=== PATIENT | female | born 1940 | race Caucasian/White ===

== ENCOUNTER 2021-04-26 17:32 | Emergency (ER) | payer OTHER, SELFPAY ==
[2021-04-26 17:39] VITALS: BP 152/70; PULSE 72; RESP 96; TEMP 36.7; BMI 29.0
--- NOTE | 2021-04-26 17:52 | DI.US.S_ITS ---
PROCEDURE: US PERIPH VENOUS LOW EXTREM RT INDICATIONS: EDEMA TECHNIQUE: Real-time imaging, as well as color and pulse Doppler interrogation, were performed of the lower extremity deep veins from the inguinal ligament to the popliteal fossa. COMPARISON: None. FINDINGS: The common femoral, femoral and popliteal veins are normally compressible, and free of intraluminal thrombus. Color and pulse Doppler demonstrate normal phasic intraluminal flow. There is normal augmentation response to distal compression maneuver. Ruiz's cyst. IMPRESSION: No evidence of DVT. Ruiz's cyst. Dictated by: Maria Elena Felipe M.D. on 04/26/2021 at 19:29 Approved by: Maria Elena Felipe M.D. on 04/26/2021 at 19:30
--- NOTE | 2021-04-26 19:38 | ED.EXTPRO ---
HPI - Extremity Problem General Chief complaint: Extremity Problem,Nontraumatic Stated complaint: poss blood clots, sent by doc Time Seen by Provider: 04/26/21 18:18 Source: patient Mode of arrival: Ambulatory Limitations: no limitations History of Present Illness HPI Narrative: Patient is an 80-year-old female who is here under the recommendation of her doctor for evaluation of right lower extremity swelling and a positive D-dimer that was ordered as an outpatient. Patient states that earlier today she was noticing that she is having swelling in her right lower extremity. She went to go see her doctor who ordered an outpatient D-dimer and she was called telling her that it was elevated and that she needed to come to the emergency department for evaluation no chest pain. No shortness of breath. Has never had a blood clot in the past. Did state that yesterday she was going up and down stairs more the which she normally does. She denies any joint pain. Related Data Allergies Allergy/AdvReac Type Severity Reaction Status Date / Time Penicillins Allergy Verified 04/26/21 17:43 Review of Systems Constitutional Constitutional: Reports system reviewed and no additional complaints, except as documented Cardiovascular Comments: No chest pain Respiratory Comments: No shortness of breath Musculoskeletal Comments: Right lower extremity swelling Integumentary/Breasts Skin/Breast: Reports system reviewed and no additional complaints, except as documented Hematologic/Lymphatic On Anticoagulants: No Patient History Social History Smoking Status: Never smoker Smoking Status: Never smoker alcohol intake frequency: holidays/special occasions only Substance Use Type: does not use Exam Initial Vital Signs Initial Vital Signs: Vital Signs Temperature 98.1 F 04/26/21 17:39 Pulse Rate 72 04/26/21 17:39 Respiratory Rate 96 H 04/26/21 17:39 Blood Pressure 152/70 H 04/26/21 17:39 Const General: cooperative and comfortable HENMT Head: normal to inspection and normocephalic Resp Effort & Inspection: normal respiratory effort Auscultation: clear to auscultation bilaterally Cardio Rate: regular rate Rhythm: regular rhythm Skin General: no rashes or lesions noted Neuro General: patient alert, patient awake and patient oriented x3 Extrem Other: Very mild swelling to the right thigh compared to the left. There is no calf swelling on the right. Right ankle is unremarkable compared the left. Course Orders Ordered: ED Orders 04/26/21 17:52 US periph venous low extrem rt Stat Vital Signs Vital signs: Vital Signs - 8 hr 04/26/21 19:56 Pulse Rate 64 Respiratory Rate 17 Blood Pressure 116/61 Pulse Oximetry 97 MDM - Extremity (Nontraumatic) Imaging Data US - DVT: Radiologist's Impression: [address] [id number] ReportSigned Patient: Ca Santoyo MMR#: [id number]: [id number]:[id number]/Sex: 80 / FDate of Service: 04/26/21Loc: EDAccession Number: [id number] Procedure: US periph venous low extrem rt Ordering Provider: Bianca Sanches D.O. PROCEDURE: US PERIPH VENOUS LOW EXTREM RT INDICATIONS: EDEMA TECHNIQUE: Real-time imaging, as well as color and pulse Doppler interrogation, were performed of the lower extremity deep veins from the inguinal ligament to the popliteal fossa. COMPARISON: None. FINDINGS: The common femoral, femoral and popliteal veins are normally compressible, and free of intraluminal thrombus. Color and pulse Doppler demonstrate normal phasic intraluminal flow. There is normal augmentation response to distal compression maneuver. Ruiz's cyst. IMPRESSION: No evidence of DVT. Ruiz's cyst. Dictated by: Maria Elena Felipe M.D. on 04/26/2021 at 19:29 Approved by: Maria Elena Felipe M.D. on 04/26/2021 at 19:30 MDM Narrative Medical decision making narrative: No chest pain, no shortness of breath, right lower extremity DVT ultrasound is negative. Her physical exam is not consistent with cellulitis. Unsure the exact etiology however feel that we can hold on further workup for now. We did discuss conservative measures to include keeping her leg elevated at home. Discussed return precautions and follow-up instructions. She expressed understanding and agreement. Discharge Plan Departure Patient Disposition: Home Clinical Impression: Lower extremity edema Instructions: DI for Peripheral Edema-Unilateral Activity Restrictions/Additional Instructions: There were no blood clots noted on the ultrasound today. Recommend that you keep your leg elevated. Contact your primary provider for follow-up. Return to the emergency department for any new or worsening symptoms
[2021-04-26 19:56] VITALS: BP 116/61; PULSE 64; RESP 17; O2SAT 97
== END 2021-04-26 19:57 | disposition home or self-care (01) ==
PROVIDERS: Emergency Provider Emergency Medicine
DX: R60.0 Localized edema (principal)
CPT/HCPCS: 93971; 99283